=== PATIENT | male | born 1940 | race African-American/Black ===

== ENCOUNTER 2017-04-24 11:33 | Emergency (ER) | payer OTHER ==
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
[2017-04-24] MEDS ORDERED: CYCL10TA2 PO (13:29)
[2017-04-24] MEDS ORDERED: CYCL5TAB PO (13:30)
[2017-04-24 13:52] VITALS: BP 120/70
== END 2017-04-24 13:57 | disposition home or self-care (01) ==
LOC: ER 11:33
DX: M54.2 Cervicalgia (principal); I10 Essential (primary) hypertension; E11.36 Type 2 diabetes mellitus with diabetic cataract; Z98.49 Cataract extraction status, unspecified eye; V43.52XA Car driver injured in collision with other type car in traffic accident, initial encounter; Y93.I9 Activity, other involving external motion; Y92.410 Unspecified street and highway as the place of occurrence of the external cause; Y99.8 Other external cause status
CPT/HCPCS: 72125; 99284-25; 99285-25